=== PATIENT | female | born 1935 | race Caucasian/White ===

== ENCOUNTER 2019-10-16 11:58 | Inpatient (IN) ==
--- NOTE | 2019-10-16 12:31 | PROVIDER DOCUMENTATION ---
HPI-Respiratory General - General Stated Complaint: SOB Time Seen by Provider: 10/16/19 12:11 - History of Present Illness-Resp Nature of Presenting Problem: 84 YOF from [facility] via EMS presents with c/o SOB, fever, cough x 3 days. Patient reports she initially thought it was allergies until the SOB became worse. She denies COPD and CHF. RLE is swollen she reports it is always swollen due to vascular issues. Denies N/V/D, CP, Abdominal pain. EMS reports initial RA sat 81% us now post neb on 6L n/c satting 93% Quality of Pain: reports: none Severity in ED: reports: severe Onset/Duration: reports: 3 days ago Timing: reports: still present, getting worse Context: reports: recent URI Cough Quality/Degree: reports: moderate, productive cough (yellow) Current Respiratory Medication Therapy: Initiated none Modifying Factors: improves with: albuterol nebulizer, oxygen. worse with: exertion, coughing Associated Symptoms: reports: cough, fever/chills, shortness of breath Similar Symptoms Previously?: No Recently seen or treated by another doctor?: No Review of Systems - Adult - REVIEW OF SYSTEMS - ADULT Constitutional: reports: see HPI, fever. denies: no symptoms reported, chills, fatique, night sweats, weight gain, weight loss, other Eyes: reports: no symptoms reported. denies: see HPI, discharge, dry eyes, decreased vision, blurred vision, double vision, eye pain, redness, other Ears, Nose, Mouth & Throat: reports: sinus problem. denies: no symptoms reported, see HPI, ear discharge, ear pain, hearing loss, tinnitus, epistaxis, nose pain, loose teeth, mouth/dental pain, mouth swelling, hoarseness, throat pain, throat swelling, other Cardiovascular: reports: no symptoms reported. denies: see HPI, chest pain, edema, heart murmur, irregular heart rate, orthopnea, palpitations, poor circulation, PND, syncope, other Respiratory: reports: see HPI, cough, shortness of breath, wheezing. denies: no symptoms reported, chronic cough, dyspnea on exertion, excessive sputum production, hemoptysis, pleurisy, other Gastrointestinal: reports: no symptoms reported. denies: see HPI, abdominal pain, hematemesis, constipation, diarrhea, difficulty swallowing, frequent heartburn, nausea, poor appetite, rectal bleeding, vomiting, other Genitourinary: reports: no symptoms reported. denies: see HPI, dysuria, discharge, frequency, flank pain, frequent UTI's, hematuria, hesitency, incontinence, urinary retention, urgency, other Musculoskeletal: reports: no symptoms reported. denies: see HPI, bone pain, back pain, frequent leg cramps, joint pain, joint swelling, muscle aches, muscle weakness, neck pain, other Integumentary: reports: no symptoms reported. denies: see HPI, hives, hair loss, itching, mole changes, nail changes, rash, skin sores/ulcer, skin thickening, other Neurological: reports: no symptoms reported. denies: see HPI, ataxia, d izziness/vertigo, headache/migraines, loss of balance, numbness, paresthesia, seizure, slurred speech, syncope, tremors, other Psychiatric: reports: no symptoms reported. denies: see HPI, anxiety, anti- depressant use, alcohol/drug dependence, depression, emotional problems, insomnia, panic attacks, suicidal thoughts, other Endocrine: reports: no symptoms reported. denies: see HPI, change in skin pigment, excessive sweating, goiter, cold intolerance, heat intolerance, increased hunger, increased thirst, polyuria, other Hematologic/Lymphatic: reports: no symptoms reported. denies: see HPI, blood clots, easy bruising, low blood count, lymphedema, prolonged bleeding, swollen lymph nodes, transfusions, other Allergic/Immunologic: reports: no symptoms reported. denies: see HPI, allergic reactions, allergic rhinitis, asthma, eczema, food allergy, frequent infections, hay fever, hives, positive PPD, urticaria, other Past History - Adult - PAST MEDICAL HISTORY-ADULT Review of Records: reports: Nursing Assessment Review, Medications Reviewed, Social history reviewed & non-contributory. Physical Exam-General - PHYSICAL EXAM-ADULT Initial Vital Signs Reviewed: Yes - CONSTITUTIONAL General Appearance: alert, mild distress - EYES Eyes: PERRL/EOMI, pink conjunctivae - HEAD, EARS, NOSE, MOUTH & THROAT HENMT: normocephalic/atraumatic, moist mucous membranes, normal ENT inspection - NECK Neck: non-tender, full range of motion, supple - RESPIRATORY Respiratory: chest non-tender, respiratory distress (mild), crackles, wheezing - CARDIOVASCULAR Cardiovascular: normal peripheral pulses, no gallop, no JVD, no murmur, tachycardia. negative: no edema (chronic RLE), JVD - GASTROINTESTINAL (ABDOMEN) Abdominal Exam: normal bowel sounds, non tender, soft, no organomegaly, no pulsatile mass - LYMPHATIC Lymphatic: no adenopathy - MUSCULOSKELETAL Back Exam: normal inspection, no CVA tenderness, no vertebral tenderness Extremity: normal range of motion, non-tender Peripheral Pulses: radial (R): 2+, radial (L): 2+ DTR: bicep (R): 2+, bicep (L): 2+ - SKIN Integumentary: normal color, normal turgor, warm/dry - NEUROLOGIC Neurologic: grossly normal - PSYCHIATRIC Psych/Mental Status: normal mood/affect, oriented x 3 Progress - PLAN OF CARE/RESULTS Progress/Plan/Lab Results: Vital Signs - 8 hr 10/16/19 12:31 10/16/19 13:00 Temperature 99.0 F Pulse Rate 102 H Respiratory Rate 34 H Blood Pressure 140/47 O2 Sat by Pulse Oximetry 94 L 93 L Laboratory Results - last 24 hr 10/16/19 10/16/19 10/16/19 12:29 12:29 12:29 WBC 9.89 RBC 3.58 L Hgb 9.6 L Hct 31.8 L MCV 88.8 MCH 26.8 L MCHC 30.2 L RDW Std Deviation 14.3 Plt Count 242 MPV 10.8 H Immature Gran % (Auto) 0.3 Neut % (Auto) 79.5 H Lymph % (Auto) 8.5 L Bonner % (Auto) 10.6 H Eos % (Auto) 0.8 Baso % (Auto) 0.3 Immature Gran # (Auto) 0.03 Neut # (Auto) 7.86 H Lymph # (Auto) 0.84 L Bonner # (Auto) 1.05 H Eos # (Auto) 0.08 Baso # (Auto) 0.03 PT INR PTT (Actin FS) Specimen Type Sample Site pH pCO2 pO2 HCO3 Base Excess Oxyhemoglobin ABG O2 Sat (Calculated) ABG O2 Saturation ABG Carboxyhemoglobin ABG Methemoglobin Petey Test A-a O2 Difference Total Hemoglobin Lactate Liter Flow Blood Gas Modality FiO2 % Sodium 140 Potassium 4.5 Chloride 101 Carbon Dioxide 23 L Anion Gap 16 BUN 12 Creatinine 0.7 Estimated GFR/1.73 m2 > 60 BUN/Creatinine Ratio 17 Glucose 144 H Calculated Osmolality 282 Calcium 8.6 L Total Bilirubin 0.70 AST 21 ALT 17 Alkaline Phosphatase 117 H Troponin T High Sens 23 H Total Protein 6.2 L Albumin 3.8 Globulin 2.0 Albumin/Globulin Ratio 2.0 Plasma Lactate Influenza A (Rapid) Influenza B (Rapid) 10/16/19 10/16/19 10/16/19 12:29 12:29 12:32 WBC RBC Hgb Hct MCV MCH MCHC RDW Std Deviation Plt Count MPV Immature Gran % (Auto) Neut % (Auto) Lymph % (Auto) Bonner % (Auto) Eos % (Auto) Baso % (Auto) Immature Gran # (Auto) Neut # (Auto) Lymph # (Auto) Bonner # (Auto) Eos # (Auto) Baso # (Auto) PT 13.4 INR 0.97 PTT (Actin FS) 41.5 Specimen Type ARTERIAL Sample Site L RADIAL pH 7.48 H pCO2 38 pO2 70 HCO3 28.4 H Base Excess 4.5 H Oxyhemoglobin 93.9 L ABG O2 Sat (Calculated) 14.4 L ABG O2 Saturation 97.7 ABG Carboxyhemoglobin 2.70 H ABG Methemoglobin 1.2 Petey Test YES A-a O2 Difference 168.0 Total Hemoglobin 10.9 L Lactate 1.00 Liter Flow 5.0 Blood Gas Modality CANNULA FiO2 % 40.0 Sodium Potassium Chloride Carbon Dioxide Anion Gap BUN Creatinine Estimated GFR/1.73 m2 BUN/Creatinine Ratio Glucose Calculated Osmolality Calcium Total Bilirubin AST ALT Alkaline Phosphatase Troponin T High Sens Total Protein Albumin Globulin Albumin/Globulin Ratio Plasma Lactate 1.1 Influenza A (Rapid) Influenza B (Rapid) 10/16/19 12:47 WBC RBC Hgb Hct MCV MCH MCHC RDW Std Deviation Plt Count MPV Immature Gran % (Auto) Neut % (Auto) Lymph % (Auto) Bonner % (Auto) Eos % (Auto) Baso % (Auto) Immature Gran # (Auto) Neut # (Auto) Lymph # (Auto) Bonner # (Auto) Eos # (Auto) Baso # (Auto) PT INR PTT (Actin FS) Specimen Type Sample Site pH pCO2 pO2 HCO3 Base Excess Oxyhemoglobin ABG O2 Sat (Calculated) ABG O2 Saturation ABG Carboxyhemoglobin ABG Methemoglobin Petey Test A-a O2 Difference Total Hemoglobin Lactate Liter Flow Blood Gas Modality FiO2 % Sodium Potassium Chloride Carbon Dioxide Anion Gap BUN Creatinine Estimated GFR/1.73 m2 BUN/Creatinine Ratio Glucose Calculated Osmolality Calcium Total Bilirubin AST ALT Alkaline Phosphatase Troponin T High Sens Total Protein Albumin Globulin Albumin/Globulin Ratio Plasma Lactate Influenza A (Rapid) POSITIVE A Influenza B (Rapid) NEGATIVE Orders Category Date Time Status NEWS Score >or=5:Order NEWS Bundle S.O. RTQ2H Care 10/16/19 12:38 Active cxr [CHEST-PORTABLE] [RAD] Stat Exams 10/16/19 12:17 Completed ABG [RESP] Routine Lab 10/16/19 12:32 Completed BLOOD CULTURE [BLDCUL] Stat Lab 10/16/19 12:23 Ordered CBC WITH ELECTRONIC DIFF [HEME] Stat Lab 10/16/19 12:29 Completed COMPREHENSIVE METABOLIC PANEL [CHEM] Stat Lab 10/16/19 12:[address] Stat Lab 10/16/19 12:47 Completed LACTATE, PLASMA [CHEM] Lab 10/16/19 15:30 Uncollected LACTATE, PLASMA [CHEM] Lab 10/16/19 18:30 Uncollected LACTATE, PLASMA [CHEM] Stat Lab 10/16/19 12:29 Completed PT [PROTIME WITH INR] [COAG] Stat Lab 10/16/19 12:29 Completed PTT [COAG] Stat Lab 10/16/19 12:29 Completed TROPONIN T HIGH SENSITIVITY Stat Lab 10/16/19 12:29 Completed Oseltamivir [Tamiflu] Med 10/16/19 13:25 Discontinued 75 mg PO NOW ONE EKG [EKG] Stat Ther 10/16/19 12:12 Active Result Diagrams: 10/16/19 12:29 10/16/19 12:29 - EKG 1 Time of EKG reading by physician:: 12:03 EKG Read and Signed by:: Freddy Ponce EKG Interpretation (*Must complete 3 of following elements*): Abnormal Rate: 111 Rhythm: ST [place]: normal QRS: normal MI Interval: normal ST Wave: non-specific ST changes Prior EKG Comparison: no prior EKG - XRAY 1 XRAY Study: Chest Impression: See EMR Report (EXAM: CHEST-PORTABLE INDICATION: SOb TECHNIQUE: One view COMPARISON: None. FINDINGS: There is suggestion of a trace pleural effusion with mild right basilar atelectasis. Coarse interstitial thickening is seen bilaterally likely representing mild fibrotic change. No definite pneumothorax is appreciated. The cardiomediastinal silhouette and central vasculature are grossly unremarkable. IMPRESSION: Suggestion of a trace effusion and right basilar atelectasis as described. Electronically signed by Ceasar Barron 10/16/2019 1:56 PM 10/16/19 1356 Interpreting Physician: Ceasar Barron MD Dictated Date/Time: 10/16/19 1355 cc: Renuka Evans; Phuong El MD) - CONSULTS/PCP/HOSPITALIST Notification #1 *Consult/PCP/Hospitalist*: Dr. Gomez Time Discussed: 14:09 Consult Disposition: Admit Departure - Departure Date of Disposition Decision: 10/16/19 Time of Disposition Decision: 14:09 DIAGNOSIS: Influenza A, Hypoxia, Anemia Disposition: ADMITTED INPATIENT 09 Certified Medical Emergency: Emergent Condition: Fair Referrals and Follow-Ups: Phuong El MD [Primary Care Provider] - - Critical Care Note This patient required my direct & personal management of CC.: No Attestation - Physician/ KELLY Attestation Patient care was provided by Advanced Practice Provider:: Yes Advanced Practice Provider:: Renuka Evans Advanced Practice Provider documentation review:: The Mid-level provider documentation, treatment plan and medical decision making was reviewed by the physician who agrees with all treatment and medical decision making by the MLP. The physician spent face to face time with patient:: No Advanced Practice Provider documentation review:: Supervising physician onsite and consulted in the evaluation and care of this patient. The physician did not have a face to face encounter with the patient.
[2019-10-16 12:46] LABS: BE 4.5 mmoll (-3.0-3.0); BLOOD TYPE ARTERIAL; HCO3-(ACT) 28.4 mmoll (20.0-26.0); METHB 1.2 % (0.0-1.5); O2(CT) 14.4 mL/dL (15.0-23.0); O2HB 93.9 % (95.0-99.0); PCO2(98.6) 38 mmHg (35-45); PO2(98.6) 70 mmHg (60-100); SAMPLE BLOOD; SAO2 97.7 % (95.0-100.0); THB 10.9 g/dL (11.5-17.4); pH(98.6) 7.48 (7.35-7.45)
[2019-10-16 12:51] LABS: BASO# 0.03 X1000 (0.0-0.2); BASO% 0.3 % (0.0-0.8); EOS# 0.08 X1000 (0.0-0.7); EOS% 0.8 % (0.0-10.0); HEMATOCRIT 31.8 % (37.0-47.0); HEMOGLOBIN 9.6 g/dL (12.0-16.0); IMM GRAN# 0.03 X1000 (0.0-0.04); IMM GRAN% 0.3 % (0.0-0.5); LYMPH# 0.84 X1000 (1.2-3.4); LYMPH% 8.5 % (20.5-51.1); MCH 26.8 PG (27-31); MCHC 30.2 g/dL (33-37); MCV 88.8 FL (81-99); MONO# 1.05 X1000 (0.11-0.59); MONO% 10.6 % (1.7-9.3); MPV 10.8 FL (7.4-10.4); NEUT# 7.86 X1000 (1.4-6.5); NEUT% 79.5 % (42.2-75.2); PLT 242 X1000 (130-400); RBC 3.58 XMIL (4.2-5.4); RDW 14.3 % (11.5-14.5); WBC 9.89 X1000 (4.8-10.8)
[2019-10-16 12:57] LABS: MODALITY CANNULA
[2019-10-16 12:58] LABS: ALLEN TEST YES
[2019-10-16 13:09] LABS: INR 0.97; PROTIME 13.4 Seconds (11.0-16.0)
[2019-10-16 13:10] LABS: PTT 41.5 Seconds (22.3-41.8)
[2019-10-16 13:14] LABS: INFLUENZA A POSITIVE (NEGATIVE); INFLUENZA B NEGATIVE (NEGATIVE)
[2019-10-16] MEDS ORDERED: TAMIFLU PO ONE (13:25)
[2019-10-16 13:38] LABS: ALBUMIN 3.8 g/dL (3.5-5.0); ALKALINE PHOSPHATASE 117 U/L (32-104); CHLORIDE 101 mmol/L (98-107); GLUCOSE 144 mg/dL (70-104); GOT 21 U/L (10-30); GPT 17 U/L (10-36); SODIUM 140 mmol/L (136-145); TOTAL PROTEIN 6.2 g/dL (6.3-8.3)
[2019-10-16 13:59] LABS: AGAP 16; BUN 12 mg/dL (8-22); CALCIUM 8.6 mg/dL (8.8-10.2); COSMO 282; CREATININE 0.7 mg/dL (0.5-0.9); ESTIMATED GFR > 60; POTASSIUM 4.5 mmol/L (3.5-5.1); TCO2 23 mmol/L (25-35)
--- NOTE | 2019-10-16 13:59 | Diag Imaging Result Doc PS360 ---
EXAM: CHEST-PORTABLE INDICATION: SOb TECHNIQUE: One view COMPARISON: None. FINDINGS: There is suggestion of a trace pleural effusion with mild right basilar atelectasis. Coarse interstitial thickening is seen bilaterally likely representing mild fibrotic change. No definite pneumothorax is appreciated. The cardiomediastinal silhouette and central vasculature are grossly unremarkable. IMPRESSION: Suggestion of a trace effusion and right basilar atelectasis as described. Electronically signed by Ceasar Barron 10/16/2019 1:56 PM
[2019-10-16] MEDS ORDERED: DUONEB (A & A) INH ONE (15:09)
[2019-10-16] MEDS ORDERED: TYLENOL PO PRN (15:21)
[2019-10-16] MEDS ORDERED: ZOFRAN IV PRN (15:21)
[2019-10-16 16:04] LABS: IRON SATURATION 4 %; TIBC 249 ug/dL; TOTAL IRON 10 ug/dL (49-151); UNBOUND IRON 239 ug/dL (112-346)
--- NOTE | 2019-10-16 16:58 | Vascular Study Report ---
EXAM: Venous U/S Bilateral Legs INDICATION: LE swelling; red; pain TECHNIQUE: COMPARISON: None. FINDINGS: There are no discrete filling defects identified on grayscale images and there is normal Doppler flow, compressibility, and augmentation involving the deep venous system of the right and the left lower extremities. IMPRESSION: No evidence of DVT. Electronically signed by Ceasar Barron 10/16/2019 4:56 PM
--- NOTE | 2019-10-16 17:17 | HISTORY AND PHYSICAL ---
ADDENDUM: ASSESSMENT AND PLAN: Left foot vascular ulcer. We will do a Wound Care consult. Dictated by NIRU Madrid for Janak Cook MD cc: NIRU Madrid MD
--- NOTE | 2019-10-16 17:37 | HISTORY AND PHYSICAL ---
PRIMARY CARE PROVIDER: Nurse practitioner at the [facility] in [place]. CHIEF COMPLAINT: Shortness of breath and fever. HISTORY OF PRESENT ILLNESS: Ms. Rdaha Bernard is an 84-year-old female with a medical history of severe venous insufficiency and hardening of the veins and has had multiple vein surgeries, poor circulation in the lower extremities, chronic swelling of the lower extremities. Also with history of peptic ulcer disease and GI bleed. Questionable COPD. She has a history of smoking. She quit in 2004. States that she woke up around Saturday morning with a hoarse voice. It remained hoarse until Saturday when she started feeling like she had a sore throat, had a headache and a fever had yellow productive cough and she thought it was more allergies. They started her on Xyzal, nebulizer treatments, but on a daily basis she had just gotten worse. Apparently at the [facility], her room air saturations were 80% or in the 80s. She was lethargic on the date we saw her and we put her oxygen, tested for the flu, which came back positive type A. Started her on Tamiflu and nebulizers. X-ray reveals some atelectasis and a little bit of effusion on the right lower lobe most likely consistent with pneumonia. She did have to be advanced on her oxygen requirements. She does tend to be a mouth breather so we will admit her and continue to treat. PAST MEDICAL HISTORY: 1. Venous insufficiency with hardening of the veins and multiple surgeries. 2. Carotid artery stenosis. 3. Hypertension. 4. Peptic ulcer disease with history of GI bleed. 5. Hyperlipidemia. 6. GERD. 7. Iron deficiency anemia. 8. Questionable COPD. There has never been an official diagnosis. SURGICAL HISTORY: 1. Multiple lower extremity vein surgeries. 2. Bilateral inguinal hernia repair. 3. Cataract surgery bilaterally. SOCIAL HISTORY: She moved here from out of [facility] 2 years ago, December 2017, Her granddaughter, Shobha Jiang is her power of estate attorney. She quit smoking in 2004. Prior to that she started at the age of 17 and smoked a half pack per day. She denies alcohol or illicit drug use. She currently lives at the [facility] and has no difficulties with walking. FAMILY HISTORY: Mother had diabetes. Father had no medical conditions. ALLERGIES: Codeine, flu vaccine, morphine, penicillin, Darvon, sulfa and vancomycin. HOME MEDICATIONS: Still have yet to be reconciled. Apparently, there is multiple home medications that are being entered. REVIEW OF SYSTEMS: Fourteen point review of systems are complete and all were negative as mentioned above HPI. She does complain of right lower extremity swelling and pain and it is red. Also a healing left foot vascular ulcer. No signs or symptoms of infection. PHYSICAL EXAMINATION: VITAL SIGNS: Temperature 99 degrees, heart rate 102, respiratory rate 34, blood pressure 140/47, O2 saturation 98% on 100% nonrebreather. She is 5 feet 4 inches tall and 128 pounds. BMI is 22. GENERAL: Ms. Radha Bernard is an 84-year-old female. She is in no acute distress. She is able to answer questions appropriately. HEENT: Atraumatic, normocephalic. Pupils equal, round, reactive to light. Extraocular movements intact. Mucous membranes are moist. NECK: Trachea midline. CARDIOVASCULAR: S1, S2. Tachycardic rate and rhythm. No rubs, gallops, murmurs. She has got 1+ lower extremity edema. Right lower extremity looks a little more edematous than the left, +1 dorsalis pedal pulses, +2 radial pulses. Negative JVD and carotid bruits. PULMONARY: Mild fine rhonchi on the right mid to lower lung and decreased. Otherwise clear in other lung ozuna. Tolerating 100% non-rebreather. No accessory muscle use or work of breathing noted. GASTROINTESTINAL: Abdomen soft, nontender, nondistended. Positive bowel sounds x4. EXTREMITIES: Moves all extremities equally. Decreased range of motion. NEUROLOGIC: A and O x3. Follows commands. Sensory is intact. SKIN: Warm, dry, intact except for left foot ulcer that is very small and there is right lower extremity redness. LABORATORY DATA: White blood cells 9000, hemoglobin 9, hematocrit 31, platelet count 242,000. INR 0.97, PTT is 41.5. ABGs on 5 L, pH 7.48, pCO2 38, PO2 at 78, bicarb 28, base excess 4.5, saturation 93%, lactate 1. Sodium 140, potassium 4.5, BUN 12, creatinine 0.7, glucose 144, calcium 8.6, bilirubin 0.70 AST 21, ALT 17, albumin 3.8. Serum lactate 1.1. Influenza A positive, B negative. IMAGING: Chest x-ray trace effusion and right basilar atelectasis. Most likely this is pneumonia. EKG sinus tachycardia, rate 111, QTc was 448. ASSESSMENT/PLAN: 1. Influenza A with respiratory symptoms. She has been placed on Tamiflu twice a day and she is placed on isolation. 2. High suspicion for right lower lobe pneumonia, coughing up yellow phlegm. We will get a sample and start her on cefepime. She has several antibiotic allergies. We will monitor her while she is on this antibiotic. 3. Right lower extremity redness and swelling with pain. We will get a venous ultrasound to rule out deep venous thrombosis. She does have significant vascular issues. 4. Acute hypoxemic respiratory failure, placed on 100% nonrebreather. There is no CO2 retention. She is not acidotic. She is just low in her PO2, so we will do nebulizers and steroids. There is question if maybe she does have a history of COPD, but not diagnosed. She used to be a smoker. 5. Seasonal allergies. Once those home medications get reconciled, we will resume home. 6. Hypertension, stable. 7. Gastroesophageal reflux disease. We will do Protonix. 8. History of peptic ulcer disease, again on Protonix. 9. History of carotid artery stenosis. No surgical interventions. No strokes in the past. 10. Chronic anemia. Could be iron deficiency. We will add some iron studies. 11. Deep venous thrombosis prophylaxis. Currently, sequential compression devices. Still home medications have not been reconciled so she may be on something for her severe vascular issues in her lower extremities. Dictated by NIRU Madrid for Janak Cook MD cc: NIRU Madrid MD [facility]
[2019-10-16] MEDS: MAXIPIME 1 GM in NS 50 ML IV SCH (18:40)
[2019-10-16] MEDS: SOLU-MEDROL IV SCH ×2 (18:44→23:30)
[2019-10-16] MEDS: ATROVENT NEB INH SCH ×3 (18:57→23:54)
[2019-10-16] MEDS: TAMIFLU PO SCH (20:07)
[2019-10-16] MEDS: PULMICORT INH SCH (20:30)
[2019-10-16] MEDS: XOPENEX NEB INH SCH ×2 (20:31→23:54)
--- NOTE | 2019-10-17 00:03 | HISTORY AND PHYSICAL ---
ADDENDUM: Patient seen and examined by myself. Full note dictated and discussed with nurse practitioner. The patient presented to the hospital with increased work of breathing, increased O2 requirement. We are going to admit to the hospital, treat symptomatically and will follow. cc: Janak Cook MD
[2019-10-17 00:51] LABS: URINE SOURCE CLEAN CATCH
[2019-10-17 01:00] LABS: BILIRUBIN URINE NEGATIVE (NEGATIVE); BLOOD URINE NEGATIVE (NEGATIVE); COLOR YELLOW; GLUCOSE URINE TRACE mg/dL (NEGATIVE); KETONE URINE NEGATIVE (NEGATIVE); LEUKOCYTES URINE MODERATE (NEGATIVE); NITRITE URINE NEGATIVE (NEGATIVE); PROTEIN URINE TRACE mg/dL (NEGATIVE); SP GRAVITY URINE 1.007; TURBIDITY URINE HAZY (CLEAR); UROBILINOGEN URINE NORMAL (NORMAL)
[2019-10-17 01:07] LABS: UR EPITHELIAL CELLS <10 /HPF (<10); URINE RBC <10 /HPF (<10); URINE WBC <10 /HPF (<10)
[2019-10-17 01:13] LABS: URINE CASTS NONE SEEN; URINE CRYSTALS NONE SEEN; URINE SMALL ROUND CELLS TRANS PRESENT; URINE YEAST NONE SEEN
[2019-10-17 01:57] LABS: URINE BACTERIA 2+ /HPF
[2019-10-17] MEDS: ATROVENT NEB INH SCH ×6 (03:48→23:32)
[2019-10-17] MEDS: XOPENEX NEB INH SCH ×6 (03:48→23:32)
[2019-10-17] MEDS: MAXIPIME 1 GM in NS 50 ML IV SCH ×3 (05:40→17:41)
[2019-10-17] MEDS: PROTONIX PO SCH (06:09)
[2019-10-17 06:21] LABS: BASO# 0.01 X1000 (0.0-0.2); BASO% 0.1 % (0.0-0.8); HEMATOCRIT 31.9 % (37.0-47.0); HEMOGLOBIN 9.6 g/dL (12.0-16.0); IMM GRAN# 0.03 X1000 (0.0-0.04); IMM GRAN% 0.4 % (0.0-0.5); LYMPH# 0.39 X1000 (1.2-3.4); LYMPH% 4.7 % (20.5-51.1); MCH 26.8 PG (27-31); MCHC 30.1 g/dL (33-37); MCV 89.1 FL (81-99); MONO# 0.17 X1000 (0.11-0.59); MONO% 2.1 % (1.7-9.3); NEUT# 7.67 X1000 (1.4-6.5); NEUT% 92.7 % (42.2-75.2); PLT 259 X1000 (130-400); RBC 3.58 XMIL (4.2-5.4); RDW 14.1 % (11.5-14.5); WBC 8.27 X1000 (4.8-10.8)
[2019-10-17 06:24] LABS: AGAP 15; ALBUMIN 3.5 g/dL (3.5-5.0); ALKALINE PHOSPHATASE 122 U/L (32-104); BUN 12 mg/dL (8-22); CALCIUM 9.1 mg/dL (8.8-10.2); CHLORIDE 100 mmol/L (98-107); COSMO 284; CREATININE 0.6 mg/dL (0.5-0.9); ESTIMATED GFR > 60; GLUCOSE 185 mg/dL (70-104); GOT 18 U/L (10-30); GPT 18 U/L (10-36); POTASSIUM 4.5 mmol/L (3.5-5.1); SODIUM 140 mmol/L (136-145); TCO2 25 mmol/L (25-35); TOTAL PROTEIN 6.8 g/dL (6.3-8.3)
[2019-10-17 06:29] LABS: BE 7.1 mmoll (-3.0-3.0); BLOOD TYPE ARTERIAL; HCO3-(ACT) 30.4 mmoll (20.0-26.0); METHB 1.3 % (0.0-1.5); O2HB 93.7 % (95.0-99.0); PCO2(98.6) 42 mmHg (35-45); PO2(98.6) 70 mmHg (60-100); SAMPLE BLOOD; THB 10.6 g/dL (11.5-17.4); pH(98.6) 7.48 (7.35-7.45)
[2019-10-17 06:31] LABS: ALLEN TEST YES; MODALITY VENTIMASK
[2019-10-17 07:07] LABS: LYMPHS 3 % (21-51); MONO 1 % (1-9); SEGS 94 % (42-75)
[2019-10-17] MEDS: PULMICORT INH SCH ×2 (07:51→20:50)
[2019-10-17] MEDS: SOLU-MEDROL IV SCH ×3 (08:09→21:06)
--- NOTE | 2019-10-17 08:55 | Diag Imaging Result Doc PS360 ---
EXAM: CHEST-PORTABLE INDICATION: PNA/Flu TECHNIQUE: One view COMPARISON: 10/16/2019 FINDINGS: Coarse interstitial thickening is stable. There is suggestion of trace right pleural fluid with adjacent mild right basilar atelectasis and/or infiltrate, stable. No new consolidation is identified. Cardiac silhouette is stable. IMPRESSION: Stable chest. Electronically signed by Ceasar Barron 10/17/2019 8:52 AM
[2019-10-17] MEDS: TAMIFLU PO SCH ×2 (10:41→20:45)
[2019-10-17] MEDS: LEXAPRO PO SCH (10:44)
[2019-10-17] MEDS: NORVASC PO SCH (10:44)
[2019-10-17] MEDS: SINGULAIR PO SCH (10:44)
[2019-10-17] MEDS: NEURONTIN PO SCH ×2 (14:42→16:53)
[2019-10-17] MEDS ORDERED: BENADRYL PO PRN (16:30)
[2019-10-17] MEDS ORDERED: ULTRAM PO PRN (16:30)
[2019-10-17] MEDS ORDERED: MUCINEX PO PRN (16:30)
--- NOTE | 2019-10-17 19:24 | PROGRESS NOTE ---
DATE: 10/17/2019 SUBJECTIVE: Patient states that she is feeling a little bit better. In fact, she states she feels well enough to go home. She does not want to stay in the hospital. She can cough and be sick at [place]. PHYSICAL: Temperature 98, pulse 105, respiratory 18, BP 153/53.General: Patient is awake elderly female who is in mild respiratory distress. She is currently still wearing oxygen. HEENT: Normocephalic. Neck: Supple. CV: Regular rate. Chest: Decreased with mild wheezing, positive rhonchi, no crackles. Extremities: Moves all extremities. Neuro: No changes. Abdomen: Soft. ASSESSMENT: 1. Influenza type A positive. 2. Presumed right lower lobe pneumonia. 3. Lower extremity edema. 4. Acute hypoxic respiratory failure. She was initially on 100% nonrebreather. She has been weaned down to 3 L nasal cannula. 5. Hypertension. PLAN: We are going continue patient in the hospital, continue to follow, continue breathing treatments, antibiotics, steroids, oxygen, will wean oxygen as tolerated. Further orders. cc: Janak Cook MD
[2019-10-17] MEDS: CELEBREX PO SCH (20:45)
[2019-10-18] MEDS: XOPENEX NEB INH SCH ×6 (03:18→23:21)
[2019-10-18] MEDS: ATROVENT NEB INH SCH ×6 (03:18→23:21)
[2019-10-18] MEDS: SOLU-MEDROL IV SCH ×2 (03:39→10:32)
[2019-10-18 05:39] LABS: BASO# 0.01 X1000 (0.0-0.2); BASO% 0.1 % (0.0-0.8); HEMATOCRIT 31.2 % (37.0-47.0); HEMOGLOBIN 9.5 g/dL (12.0-16.0); IMM GRAN# 0.09 X1000 (0.0-0.04); IMM GRAN% 0.8 % (0.0-0.5); LYMPH# 0.74 X1000 (1.2-3.4); LYMPH% 6.4 % (20.5-51.1); MCH 26.9 PG (27-31); MCHC 30.4 g/dL (33-37); MCV 88.4 FL (81-99); MONO# 0.41 X1000 (0.11-0.59); MONO% 3.6 % (1.7-9.3); MPV 10.6 FL (7.4-10.4); NEUT# 10.23 X1000 (1.4-6.5); NEUT% 89.1 % (42.2-75.2); PLT 317 X1000 (130-400); RBC 3.53 XMIL (4.2-5.4); RDW 14.2 % (11.5-14.5); WBC 11.48 X1000 (4.8-10.8)
[2019-10-18] MEDS: MAXIPIME 1 GM in NS 50 ML IV SCH (05:46)
[2019-10-18 05:47] LABS: AGAP 14; ALBUMIN 3.5 g/dL (3.5-5.0); ALKALINE PHOSPHATASE 109 U/L (32-104); BUN 18 mg/dL (8-22); CALCIUM 9.2 mg/dL (8.8-10.2); CHLORIDE 102 mmol/L (98-107); COSMO 290; CREATININE 0.6 mg/dL (0.5-0.9); ESTIMATED GFR > 60; GLUCOSE 188 mg/dL (70-104); GOT 13 U/L (10-30); GPT 15 U/L (10-36); SODIUM 142 mmol/L (136-145); TCO2 26 mmol/L (25-35); TOTAL PROTEIN 6.7 g/dL (6.3-8.3)
[2019-10-18 06:40] LABS: LYMPHS 5 % (21-51); MONO 3 % (1-9); SEGS 92 % (42-75)
[2019-10-18 06:41] LABS: LARGE PLATELETS OCCASIONAL; OVALOCYTES OCCASIONAL; POIKILOCYTOSIS OCCASIONAL
[2019-10-18] MEDS: SYNTHROID PO SCH (06:50)
[2019-10-18] MEDS: PROTONIX PO SCH (06:50)
[2019-10-18] MEDS ORDERED: PROTONIX PO SCH (07:00)
[2019-10-18] MEDS: PULMICORT INH SCH ×2 (08:24→20:10)
[2019-10-18] MEDS: NEURONTIN PO SCH ×3 (10:29→16:29)
[2019-10-18] MEDS: TAMIFLU PO SCH ×2 (10:29→21:59)
[2019-10-18] MEDS: CELEBREX PO SCH ×2 (10:29→21:58)
[2019-10-18] MEDS: COZAAR PO SCH (10:29)
[2019-10-18] MEDS: ASPIRIN EC PO SCH (10:29)
[2019-10-18] MEDS: NORVASC PO SCH (10:29)
[2019-10-18] MEDS: SINGULAIR PO SCH (10:29)
[2019-10-18] MEDS: LEXAPRO PO SCH (10:29)
[2019-10-18] MEDS ORDERED: SOLU-MEDROL IV SCH (10:46)
--- NOTE | 2019-10-18 15:23 | PROGRESS NOTE ---
DATE: 10/18/2019 SUBJECTIVE: Patient notes that she is feeling better. She is actually sitting up in a chair. PHYSICAL EXAMINATION: Vital Signs: Reviewed. Temperature 97 degrees, pulse 114, respiratory rate 18, blood pressure 146/52. General: Patient is pleasant, elderly female who is in mild current respiratory distress. She is still on oxygen. HEENT: Normocephalic. Neck: Supple. Cardiovascular: Regular rate. Chest: Minimal wheezing. Much improved air movement. Abdomen: Soft. Extremities: Moves all extremities. Neurologic: No changes. ASSESSMENT: 1. Acute hypoxic respiratory failure. We will continue to attempt to wean. 2. Influenza type A. 3. Right lower lobe pneumonia. 4. Hypertension. 5. Known coronary artery disease. PLAN: We will continue patient in the hospital. Continue treatments. Continue oxygen. We will attempt to wean her O2 and will follow. cc: Janak Cook MD
[2019-10-18] MEDS: SOLU-MEDROL IM SCH (21:30)
[2019-10-18] MEDS: OMNICEF PO SCH (21:58)
[2019-10-19] MEDS: XOPENEX NEB INH SCH ×6 (03:32→22:50)
[2019-10-19] MEDS: ATROVENT NEB INH SCH ×6 (03:32→22:50)
[2019-10-19 06:08] LABS: BASO# 0.04 X1000 (0.0-0.2); BASO% 0.3 % (0.0-0.8); HEMATOCRIT 32.8 % (37.0-47.0); HEMOGLOBIN 9.9 g/dL (12.0-16.0); IMM GRAN# 0.23 X1000 (0.0-0.04); IMM GRAN% 1.7 % (0.0-0.5); LYMPH# 0.95 X1000 (1.2-3.4); LYMPH% 6.9 % (20.5-51.1); MCH 26.5 PG (27-31); MCHC 30.2 g/dL (33-37); MCV 87.9 FL (81-99); MONO# 0.67 X1000 (0.11-0.59); MONO% 4.9 % (1.7-9.3); MPV 10.5 FL (7.4-10.4); NEUT# 11.87 X1000 (1.4-6.5); NEUT% 86.2 % (42.2-75.2); PLT 381 X1000 (130-400); RBC 3.73 XMIL (4.2-5.4); RDW 14.3 % (11.5-14.5); WBC 13.76 X1000 (4.8-10.8)
[2019-10-19 06:16] LABS: AGAP 14; ALBUMIN 3.5 g/dL (3.5-5.0); ALKALINE PHOSPHATASE 105 U/L (32-104); BUN 21 mg/dL (8-22); CALCIUM 9.1 mg/dL (8.8-10.2); CHLORIDE 104 mmol/L (98-107); COSMO 292; CREATININE 0.5 mg/dL (0.5-0.9); ESTIMATED GFR > 60; GLUCOSE 177 mg/dL (70-104); GOT 14 U/L (10-30); GPT 17 U/L (10-36); POTASSIUM 3.4 mmol/L (3.5-5.1); SODIUM 143 mmol/L (136-145); TCO2 25 mmol/L (25-35); TOTAL PROTEIN 6.6 g/dL (6.3-8.3)
[2019-10-19] MEDS: PROTONIX PO SCH (06:31)
[2019-10-19] MEDS: SYNTHROID PO SCH (06:31)
[2019-10-19 06:52] LABS: LYMPHS 9 % (21-51); MONO 4 % (1-9); SEGS 87 % (42-75)
[2019-10-19] MEDS: PULMICORT INH SCH ×2 (08:48→20:11)
[2019-10-19] MEDS: CELEBREX PO SCH ×2 (09:53→22:14)
[2019-10-19] MEDS: NEURONTIN PO SCH ×3 (09:53→17:23)
[2019-10-19] MEDS: COZAAR PO SCH (09:53)
[2019-10-19] MEDS: SINGULAIR PO SCH (09:53)
[2019-10-19] MEDS: LEXAPRO PO SCH (09:53)
[2019-10-19] MEDS: ASPIRIN EC PO SCH (09:53)
[2019-10-19] MEDS: TAMIFLU PO SCH ×2 (09:53→22:15)
[2019-10-19] MEDS: NORVASC PO SCH (09:53)
[2019-10-19] MEDS: OMNICEF PO SCH ×2 (09:53→22:14)
[2019-10-19] MEDS: SOLU-MEDROL IM SCH ×2 (09:53→22:13)
[2019-10-19] MEDS: ANTIVERT PO PRN ×2 (09:56→22:15)
[2019-10-19 13:24] LABS: FERRITIN 101 ng/mL (13-150)
--- NOTE | 2019-10-19 15:35 | DISCHARGE SUMMARY ---
ADMISSION DATE: 10/16/2019 DISCHARGE DATE: 10/19/2019 PRIMARY CARE PROVIDER: Phuong El MD PROCEDURES: Venous Dopplers: No evidence of DVT. Chest x-ray: Trace effusion, right basal atelectasis. Followup chest x-ray: Stable. DISCHARGE DIAGNOSES: 1. Acute hypoxemic respiratory failure. The patient has been weaned off her O2. She is currently saturating well on room air. 2. Influenza type A. We will continue her Tamiflu treatment. 3. Right lower lobe pneumonia. Continue p.o. antibiotics. 4. Hypertension. Continue home regimen. 5. Known coronary artery disease. No chest pain. 6. Left foot vascular ulcer. Wound Care was consulted. HOSPITAL COURSE: Briefly, Ms. Bernard is an 84-year-old female with a past medical history of severe venous insufficiency, hardening of the veins and multiple vein surgeries, poor circulation in the lower extremities, chronic swelling of the lower extremities, questionable COPD, who reports she woke up Saturday morning with a hoarse voice. She remained hoarse until Saturday and started to feel like she had a sore throat, headache, fever, yellow productive cough. She was started on Xyzal nebulizer treatments. She continued to get worse daily at the [facility]. Her room saturations were 80%, initially lethargic. She was tested for the flu that came back type A positive. She was started on Tamiflu, nebulizers and IV antibiotics for right lower lobe pneumonia and placed on supplemental O2. She has had an uneventful hospital course. Her O2 has been weaned to room air. She has been re-evaluated by the [facility] and will be discharged back there today. VITAL SIGNS: At time for discharge temperature is 98.4 degrees, heart rate 105, respirations 18, blood pressure 148/50, O2 is 96% on room air. DISCHARGE DIET: Healthy heart. DISCHARGE MEDICATIONS: 1. Allopurinol 100 mg p.o. daily. 2. Antidiarrheal 2 tablets p.o. p.r.n. diarrhea. 3. Aspirin 81 mg p.o. daily. 4. Benadryl 25 mg p.o. p.r.n. 5. Celecoxib 100 mg p.o. b.i.d. 6. Gabapentin 300 mg p.o. t.i.d. 7. Lexapro 10 mg p.o. daily p.o. b.i.d. 8. Lipitor 40 mg p.o. daily. 9. Losartan potassium 100 mg p.o. daily. 10. Meclizine 25 mg p.o. b.i.d. 11. Mucinex p.o. 600 mg p.o. q.12 hours. 12. Norvasc 10 mg p.o. daily. 13. Protonix 40 mg p.o. daily. 14. Singulair 10 mg p.o. daily. 15. Synthroid 88 mcg p.o. daily. 16. Tylenol arthritis 1 tab p.o. b.i.d. 17. Ultram 50 mg p.o. p.r.n. pain. 18. Tamiflu. 19. Omnicef 300 mg p.o. b.i.d. FOLLOWUP: Ms. Bernard is being discharged back to the [facility]. She will follow up with her primary care physician there. She is to take all medications as prescribed. She can return to the ED or call 911 for any worsening of symptoms. Dictated by NRIU Antonio for Janak Cook MD cc: MD Phuong James
--- NOTE | 2019-10-19 16:26 | Diag Imaging Result Doc PS360 ---
EXAM: CHEST-2 VIEWS HISTORY: dyspnea TECHNIQUE: PA and Lateral chest x-ray COMPARISON: 10/17/2019 FINDINGS: There is been an improved inspiratory result. Marked improvement in the bibasilar infiltrates. Trace posterior effusions are identified. The pulmonary vasculature is not congested. There is stable cardiomegaly. IMPRESSION: Significant improvement in bibasilar infiltrates and vascular congestion. Electronically signed by Kristi Carrillo 10/19/2019 4:23 PM
[2019-10-19] MEDS ORDERED: LACTULOSE PO PRN (16:51)
[2019-10-19] MEDS ORDERED: LACTULOSE PO ONE (16:51)
[2019-10-19 19:16] LABS: URINE SOURCE CLEAN CATCH
[2019-10-19 19:17] LABS: BILIRUBIN URINE NEGATIVE (NEGATIVE); BLOOD URINE TRACE (NEGATIVE); COLOR YELLOW; GLUCOSE URINE TRACE mg/dL (NEGATIVE); KETONE URINE NEGATIVE (NEGATIVE); LEUKOCYTES URINE MODERATE (NEGATIVE); NITRITE URINE NEGATIVE (NEGATIVE); PROTEIN URINE 30 mg/dL (NEGATIVE); SP GRAVITY URINE 1.012; TURBIDITY URINE CLEAR (CLEAR); UROBILINOGEN URINE NORMAL (NORMAL)
[2019-10-19 19:18] LABS: UR EPITHELIAL CELLS <10 /HPF (<10); URINE BACTERIA NEGATIVE /HPF; URINE WBC <10 /HPF (<10)
--- NOTE | 2019-10-19 20:12 | Diag Imaging Result Doc PS360 ---
EXAM: KUB ABDOMEN - 10/19/2019 HISTORY: abdominal pain TECHNIQUE: Portable AP spine abdomen COMPARISON: None. FINDINGS: There is gas visible in colon. There is gas visible within a few small bowel loops. There is no substantial gaseous bowel distention identified during thoracolumbar spondylosis and chronic appearing L2 compression deformity noted. There are common iliac stents noted. IMPRESSION: Nonspecific bowel gas pattern. Electronically signed by Daniel Lee 10/19/2019 8:09 PM
[2019-10-19] MEDS: COLACE PO SCH (22:15)
[2019-10-20] MEDS: XOPENEX NEB INH SCH ×3 (03:30→10:53)
[2019-10-20] MEDS: ATROVENT NEB INH SCH ×3 (03:30→10:53)
--- NOTE | 2019-10-20 06:06 | PROGRESS NOTE ---
DATE: 10/19/2019 Patient presented to the hospital with shortness of breath. Her symptoms have improved. She has weaned off oxygen. She did have influenza A which has been adequately treated. We are going to continue her treatment at home with antibiotics and Medrol Dosepak. Please see further orders. cc: Janak Cook MD
[2019-10-20] MEDS: PROTONIX PO SCH (06:50)
[2019-10-20] MEDS: SYNTHROID PO SCH (06:50)
[2019-10-20] MEDS: PULMICORT INH SCH (07:25)
[2019-10-20 07:36] LABS: BASO# 0.06 X1000 (0.0-0.2); BASO% 0.4 % (0.0-0.8); EOS# 0.01 X1000 (0.0-0.7); EOS% 0.1 % (0.0-10.0); HEMATOCRIT 32.6 % (37.0-47.0); HEMOGLOBIN 9.9 g/dL (12.0-16.0); IMM GRAN# 0.79 X1000 (0.0-0.04); IMM GRAN% 5.1 % (0.0-0.5); LYMPH% 10.3 % (20.5-51.1); MCH 26.5 PG (27-31); MCHC 30.4 g/dL (33-37); MCV 87.2 FL (81-99); MONO# 0.86 X1000 (0.11-0.59); MONO% 5.6 % (1.7-9.3); MPV 10.5 FL (7.4-10.4); NEUT# 12.16 X1000 (1.4-6.5); NEUT% 78.5 % (42.2-75.2); PLT 436 X1000 (130-400); RBC 3.74 XMIL (4.2-5.4); RDW 14.2 % (11.5-14.5); WBC 15.48 X1000 (4.8-10.8)
[2019-10-20 07:52] VITALS: BP 162/51
[2019-10-20 08:03] LABS: AGAP 16; ALBUMIN 3.5 g/dL (3.5-5.0); ALKALINE PHOSPHATASE 103 U/L (32-104); BUN 20 mg/dL (8-22); CALCIUM 9.1 mg/dL (8.8-10.2); CHLORIDE 102 mmol/L (98-107); COSMO 291; CREATININE 0.6 mg/dL (0.5-0.9); ESTIMATED GFR > 60; GLUCOSE 156 mg/dL (70-104); GOT 18 U/L (10-30); GPT 23 U/L (10-36); POTASSIUM 3.6 mmol/L (3.5-5.1); SODIUM 143 mmol/L (136-145); TCO2 25 mmol/L (25-35); TOTAL PROTEIN 6.6 g/dL (6.3-8.3)
[2019-10-20] MEDS: COZAAR PO SCH (08:55)
[2019-10-20] MEDS: ASPIRIN EC PO SCH (08:55)
[2019-10-20] MEDS: NORVASC PO SCH (08:55)
[2019-10-20] MEDS: OMNICEF PO SCH (08:55)
[2019-10-20] MEDS: SINGULAIR PO SCH (08:55)
[2019-10-20] MEDS: LEXAPRO PO SCH (08:55)
[2019-10-20] MEDS: COLACE PO SCH (08:55)
[2019-10-20] MEDS: CELEBREX PO SCH (08:55)
[2019-10-20] MEDS: TAMIFLU PO SCH (08:55)
[2019-10-20] MEDS: ANTIVERT PO PRN (08:55)
[2019-10-20] MEDS: NEURONTIN PO SCH (08:55)
[2019-10-20] MEDS: SOLU-MEDROL IM SCH (08:56)
[2019-10-20 09:02] LABS: LYMPHS 13 % (21-51); MONO 7 % (1-9); SEGS 80 % (42-75)
--- NOTE | 2019-10-20 23:14 | PROGRESS NOTE ---
DATE: 10/19/2019 The patient was seen by myself early in the morning and she had stated that she wanted to go home, stated that she was feeling better. However, later in the afternoon, she noted that she was having increased constipation. She was fatigued and stated that she was concerned about going home. PHYSICAL EXAMINATION: Vital Signs: Temperature 98 degrees, pulse 108, respiratory rate 20, BP 142/63. General: The patient is awake, pleasant. She is currently in no respiratory distress upon my exam this morning. She had no other complaints. However, as noted, she did complain of constipation and shortness of breath in the afternoon, and therefore discharge was held. HEENT: Normocephalic. Neck: Supple. Cardiovascular: Regular rate. Chest: Clear. Abdomen: Soft, nondistended. No masses. Extremities: Moves all extremities. ASSESSMENT: 1. Influenza type A, resolved. She has been on Tamiflu for several days. 2. Right lower extremity swelling, improved. 3. Acute hypoxic respiratory failure. Initially was on 100% non-rebreather. Currently is on room air. 4. Reflux. cc: Janak Cook MD
--- NOTE | 2019-10-21 00:09 | DISCHARGE SUMMARY ---
ADMISSION DATE: 10/16/2019 DISCHARGE DATE: 10/20/2019 ADDENDUM: On discharge, the patient states that she is feeling better. Notes that she is breathing well. Notes that she is ambulating well and states that she is wanting to go home. PLAN: We will discharge her home. We will continue antibiotics and steroids at home. Please see full note. cc: Janak Cook MD
== END 2019-10-20 13:45 | DRG 871 ==
LOC: P.ED 11:58 → P.MEDSURG 11:59
PROVIDERS: ATTEND Family Medicine